=== PATIENT | male | born 1960 | race Caucasian/White ===

== ENCOUNTER 2021-04-17 14:35 | Outpatient (CLI) | payer OTHER, SELFPAY ==
[2021-04-17 15:01] VITALS: BP 107/72; PULSE 70; RESP 18; TEMP 36.5; O2SAT 96; BMI 23.7
[2021-04-17 15:42] VITALS: BP 112/75; PULSE 66; RESP 16; O2SAT 98
[2021-04-17 16:35] VITALS: BP 119/82; PULSE 68; RESP 16; TEMP 36.8; O2SAT 95
== END 2021-04-17 14:36 | disposition home or self-care (01) ==
LOC: OPS 14:36
PROVIDERS: Visit Provider Nurse Practitioner Family
DX: U07.1 COVID-19 (principal)
CPT/HCPCS: 96365